=== PATIENT | female | born 1990 | race Caucasian/White ===

== ENCOUNTER 2024-12-29 00:10 | Inpatient (IN) ==
[2024-12-29] MEDS ORDERED: LIDOCAINE 1% LOCAL 20 ML VIAL INFIL PRN (18:22)
[2024-12-29] MEDS ORDERED: CALCIUM CARBONATE 500 MG CHEWABLE TAB PO PRN (18:22)
[2024-12-29] MEDS ORDERED: OXYTOCIN 30 UNITS/NSS 30 UNITS/500 ML BAG IV PRN ×2 (18:22)
[2024-12-29 19:54] LABS: Hematocrit (blood only) 34.0 % (37.0-47.0); Hemoglobin 11.9 g/dl (12.0-16.0); Mean Corpuscular Hemoglobin 30.9 pg (25.0-34.0); Mean Corpuscular Volume 88.3 fL (80.0-100.0); Platelet Count 144 K/uL (130-400); RDW Standard Deviation 45.8 fL (36.4-46.3); Red Blood Count 3.85 M/uL (4.20-5.40); White Blood Count 10.62 K/ul (4.8-10.8)
--- NOTE | 2024-12-29 21:24 | History & Physical Report ---
Date of Service December 29, 2024 Assessment & Plan (1) 41 weeks gestation of : (2) Encounter for induction of labor: (3) Uterus didelphus in : Plan admit, iv, labs. fhts categ 1. i do feel that i was palpating dominant cx as can feel developed DEBBI. cephalic by u/s at [facility] yesterday. will try to ripen cx with cytotec and at later time consider cobb and then pit as appropriate. have discussed pcn for now gbs unknown since >5wks from negative result. Admission and Anticipated Discharge Date Admission Date: December 29, 2024 History of Present Illness Chief Complaint: planned induction Primary Care Provider: NO PCP 34yo at 41+wks egmalcolm presents to LD for planned postdates induction. She had some cramping since last seen. No vb. No rom. +FM. Uterine didelphys, in right side. Growth u/s normal. PNL rh pos, ri, gbs unknown given >5wks from negative result. Allergies Allergy/AdvReac Type Severity Reaction Status Date / Time No Known Allergies Allergy Verified 12/18/24 13:53 Home Medications Medication Instructions Recorded Confirmed Type PNV no.[id number] PO 06/09/24 12/18/24 History [ Gummies] ferrous sulfate 325 mg (65 mg 325 mg PO Q OTHER DAY 10/24/24 12/29/24 History iron) tablet (FeroSul) Patient History Medical History (Updated 12/29/24 @ 21:[address] MD, FACOG) Asthma Childhood History of chicken pox Surgical History (Updated 06/16/24 @ 13:04 by Laquita Sherman MD) History of gynecologic surgery vaginal septum removal S/P tooth extraction Family History (Updated 06/09/24 @ 09:57 by Jennifer Sal) Denies family history of Ovarian cancer Breast cancer Colorectal cancer Social History (Updated 12/29/24 @ 18:14 by Sandra Mejia, PINO) Smoking Status: Never smoker Do You Dip or Chew Tobacco: No; Hx Alcohol Use: No Hx Substance Use: No Preferred Language: Khmer Communication Ability: Effective Hearing Ability: Normal Embroidery Cutter Required: No Beliefs That Will Affect Care: None marital status: marital status details: Alexis Miranda ([phone] Current Living Situation: Spouse and Family Current Living Situation Comment: lives with spouse, adopted daughter, many animals, cat-dad changing litter current occupational status: employed current occupation: [employer] Other Information That Helps Us Care for You: No Feels Safe at Home: Yes Safety Concerns: Feels Safe At This Time Diet: regular Assistive Devices: None Review of Systems as per Subjective / HPI Physical Exam Constitutional: WD/WN, vitals as above Respiratory: normal respiratory effort, lungs clear to auscultation Cardiovascular: Rate/Rhythm: regular rate and regular rhythm Gastrointestinal (Abdomen): soft gravid nt efw 7-8# Musculoskeletal: no edema nontender calves Neurologic: grossly normal Psychiatric: A+Ox3, euthymic affect Genitourinary: Manual OB Exam: + cervical dilation fingertip (developed DEBBI), + cervical effacement 80% and + station -2 OB Exam Monitor Tracing: + external FHT monitor used, + external uterine monitor used (irreg), + category I and + normal FHT variability PROCEDURE: sse cx visualized, appears dominant, grasped on ant lip with ring forcep, cobb through os and balloon inflated but promptly came out of os. procedure aborted. 25mcg cytotec placed after informed cons ent, off label use, high use in obstetrics reviewed, [facility] of action and side effects. Results & Data Vital Signs (Past 12 Hours) Vital Signs Temp Pulse Resp BP O2 Del Method 12/29/24 19:12 98.1 F 88 18 135/90 12/29/24 19:07 98.1 F 18 12/29/24 19:07 Room Air 12/29/24 18:18 98.2 F 81 18 139/91 12/29/24 18:11 81 139/91 Coding Level of Care Code None Diagnoses 41 weeks gestation of O48.0; Z3A.41 Encounter for induction of labor Z34.90 Uterus didelphus in O34.599; Q51.28 CPT Codes Misx Procedure Codes - 85991-31 Placement of cervical dilator: 45164-63 Placement of cervical dilator w/53 modifier ([id number])
--- NOTE | 2024-12-30 08:08 | Labor Progress Brief Note ---
Date of Service December 30, 2024 Subjective pt feels cramping. showing ctx on monitor they vary in intensity to her. had one dose cytotec overnight. afer failed cobb attempt Assessment & Plan (1) 41 weeks gestation of : (2) Encounter for induction of labor: (3) Uterus didelphus in : Plan Discussed with pt that cx still unfavorable. now that i can palpated 1cm, did rec trying to place cobb and was successful. fhts categ 1. Admission and Anticipated Discharge Date Admission Date: December 29, 2024 Physical Exam Constitutional: WD/WN, vitals as above Genitourinary: Manual OB Exam: + cervical dilation (right cervix, off to side moreso, no straight on. ) 1 cm OB Exam Monitor Tracing: + external FHT monitor used, + external uterine monitor used (q2), + category I and + normal FHT variability PROCEDURE: sse cx visualized, not cx straight ahead its to its side. grasped on ant lip with ring forcep, cobb through os and balloon inflated with 40cc sterile water. Spec removed, cobb taped to leg. pt murtaza well. Results & Data Vital Signs (Past 12 Hours) Vital Signs Temp Pulse Resp BP 12/30/24 07:03 98.4 F 92 H 18 144/80 H 12/30/24 02:00 98.4 F 82 18 127/76 12/29/24 22:20 98.2 F 90 18 139/81 Coding Level of Care Code None Diagnoses 41 weeks gestation of O48.0; Z3A.41 Encounter for induction of labor Z34.90 Uterus didelphus in O34.599; Q51.28 CPT Codes Misx Procedure Codes - 74599 Placement of cervical dilator: 64931 Placement of cervical dilator ([id number]) [employer] Miscellaneous Codes Misx Procedure Codes 64406 Placement of cervical dilator
[2024-12-30] MEDS ORDERED: Nursing to Pharmacy Communication SCH (10:45)
[2024-12-30] MEDS: OXYTOCIN 30 UNITS/NSS 30 UNITS/500 ML BAG IV PRN (11:30)
[2024-12-30] MEDS: LACTATED RINGER'S 1,000 ML IV PRN (11:30)
[2024-12-30] MEDS ORDERED: diphenhydrAMINE 50 MG/ML VIAL IV PRN (22:25)
[2024-12-30] MEDS ORDERED: fentANYL 2 MCG/ML BUPIVacaine 0.125%-NSS 100ML BAG EPI PRN (22:25)
[2024-12-30] MEDS ORDERED: SODIUM CHLORIDE 0.9% PF INJ 10 ML VIAL EPI PRN (22:25)
[2024-12-30] MEDS ORDERED: NALOXONE HCL 0.4 MG/1 ML VIAL/CARP IV PRN (22:25)
[2024-12-30] MEDS ORDERED: LIDOCAINE 2% MPF LOCAL 5 ML VIAL EPI PRN (22:25)
[2024-12-30] MEDS ORDERED: NALBUPHINE HCL INJ 10 MG/ML AMP IV PRN (22:25)
[2024-12-30] MEDS ORDERED: BUPIVACAINE 0.25% PF 30 ML VIAL EPI PRN (22:25)
[2024-12-30] MEDS ORDERED: NALOXONE HCL 1 MG in SODIUM CHLORIDE 0.9% 1,000 ML IV PRN (22:25)
[2024-12-30] MEDS ORDERED: ROPIVACAINE 0.5% PF 5 MG/ML 20 ML VIAL EPI PRN (22:25)
--- NOTE | 2024-12-30 22:25 | Anesthesiology Consultation ---
Date of Service December 30, 2024 Assessment & Plan Chart Review Chart Review: Acceptable Risk for Labor Epidural Consults Requested none History Height/Weight Height: 5 ft 2 in Weight: 74.843 kg Allergies Allergy/AdvReac Type Severity Reaction Status Date / Time No Known Allergies Allergy Verified 12/18/24 13:53 Medications Home Medications Medication Instructions Recorded Confirmed Last Taken PNV no.[id number] PO 06/09/24 12/18/24 12/29/24 [ Gummies] ferrous sulfate 325 mg (65 mg 325 mg PO Q OTHER DAY 10/24/24 12/29/24 12/28/24 iron) tablet (FeroSul) Active Medications Generic Name Dose Route Start Last Admin Trade Name Freq PRN Reason Stop Dose Admin Lactated Ringer's 1,000 mls @ 125 mls/hr 12/29/24 18:22 12/30/24 22:17 Lr IV 12/31/24 18:21 999 mls/hr .Q8H PRN Administration L&D Protocol Protocol Oxytocin 30 units in 500 mls @ 8 mls/hr 12/30/24 10:30 12/30/24 20:00 Pitocin 30 Units/Nss IV 01/01/25 10:29 0.48 units/hr .Q24H PRN 8 mls/hr Labor Induction/Augmentation Titration Protocol 0.48 UNITS/HR Past Medical History Medical History (Updated 12/29/24 @ 21:[address] MD, FACOG) Asthma Childhood History of chicken pox Past Family History Family History (Updated 06/09/24 @ 09:57 by Jennifer Sal) Denies family history of Ovarian cancer Breast cancer Colorectal cancer Past Surgical History Surgical History (Updated 06/16/24 @ 13:04 by Laquita Sherman MD) History of gynecologic surgery vaginal septum removal S/P tooth extraction Social History Smoking Status: Never smoker Do You Dip or Chew Tobacco: No Hx Alcohol Use: No Hx Substance Use: No Physical Exam Vital Signs Last Vital Signs Temp 36.5 C 12/30/24 21:05 Pulse 64 12/30/24 22:22 Resp 22 12/30/24 22:00 BP 141/97 H 12/30/24 21:56 Pulse Ox 96 12/30/24 22:22 O2 Del Method Room Air 12/29/24 19:07 Testing Laboratory Results 12/29/24 18:59
[2024-12-30] MEDS: fentANYL 2 MCG/ML BUPIVacaine 0.125%-NSS 100ML BAG ONE (23:33)
[2024-12-30] MEDS: BUPIVACAINE 0.25% PF 30 ML VIAL ONE (23:37)
[2024-12-30] MEDS: LIDOCAINE 2%/EPINEPHRINE 1:200,000 20 ML PF ONE (23:37)
--- NOTE | 2024-12-31 06:49 | Labor Progress Brief Note ---
Date of Service December 31, 2024 Induction began on Wednesday initially with Cytotec and then cervical Lambert. On arrival yesterday morning began Pitocin cervical Lambert eventually was removed and found cervix to be 2 cm this was late yesterday morning artificial rupture of membranes was performed for clear fluid Pitocin was continued eventually patient requested epidural unfortunately the next 24 hours we have had no cervical change despite adequate contractions now but her presence of late decelerations Pitocin has been stopped I discussed with the patient and recommend a section for failure to progress and also nonreassuring heart rate tracing discussed in depth including higher risks of infection section. The patient was counseled to the nature of the procedure including alternatives such as labor. Risks were discussed including bleeding infection injury to bowel bladder ureter vessels and even baby. Deep Vein thrombosis, pulmonary embolus discussed. Breakdown of incision reviewed. Deep vein thrombosis pulmonary embolus hernia and failure of the incision to heal were discussed Patient verbalized understanding of this and was given ample time to ask questions Assessment & Plan Admission and Anticipated Discharge Date Admission Date: December 29, 2024 Results & Data Vital Signs (Past 12 Hours) Vital Signs Temp Pulse Resp BP Pulse Ox 12/31/24 06:42 77 99 12/31/24 06:37 85 100 12/31/24 06:33 84 129/77 12/31/24 06:32 84 99 12/31/24 06:30 20 12/31/24 06:30 20 12/31/24 06:27 78 99 12/31/24 06:22 91 H 98 12/31/24 06:18 84 128/73 12/31/24 06:17 85 99 12/31/24 06:12 88 98 12/31/24 06:07 73 96 12/31/24 06:03 71 119/67 12/31/24 06:02 74 97 12/31/24 06:00 20 12/31/24 06:00 20 12/31/24 05:57 75 96 12/31/24 05:52 71 96 12/31/24 05:48 71 113/56 L 12/31/24 05:47 73 97 12/31/24 05:42 86 96 12/31/24 05:37 75 95 12/31/24 05:33 82 124/74 12/31/24 05:32 76 96 12/31/24 05:30 18 12/31/24 05:30 18 12/31/24 05:27 74 97 12/31/24 05:22 76 97 12/31/24 05:18 72 130/78 12/31/24 05:17 74 98 12/31/24 05:12 76 97 12/31/24 05:07 82 99 12/31/24 05:03 81 126/75 12/31/24 05:02 89 99 12/31/24 05:00 18 12/31/24 05:00 98.2 F 18 12/31/24 04:57 77 98 12/31/24 04:52 93 H 98 12/31/24 04:48 93 H 118/72 12/31/24 04:47 85 97 12/31/24 04:42 95 H 98 12/31/24 04:37 100 H 98 12/31/24 04:33 71 123/75 12/31/24 04:32 69 96 12/31/24 04:27 71 96 12/31/24 04:22 88 98 12/31/24 04:18 77 123/77 12/31/24 04:17 81 96 12/31/24 04:12 66 95 12/31/24 04:07 68 96 12/31/24 04:03 75 118/74 12/31/24 04:02 72 96 12/31/24 04:00 18 12/31/24 04:00 18 12/31/24 03:57 69 94 12/31/24 03:52 69 95 12/31/24 03:49 70 119/71 12/31/24 03:47 69 96 12/31/24 03:42 71 96 12/31/24 03:37 70 95 12/31/24 03:33 67 115/69 12/31/24 03:32 70 96 12/31/24 03:30 18 12/31/24 03:30 18 12/31/24 03:27 75 96 12/31/24 03:22 71 95 12/31/24 03:18 71 126/71 12/31/24 03:17 74 97 12/31/24 03:12 71 95 12/31/24 03:07 71 95 12/31/24 03:04 77 123/63 12/31/24 03:02 81 96 12/31/24 03:00 18 12/31/24 03:00 98.2 F 18 12/31/24 02:57 95 H 99 12/31/24 02:52 74 98 12/31/24 02:48 70 135/77 12/31/24 02:47 80 100 12/31/24 02:42 75 96 12/31/24 02:37 67 97 12/31/24 02:33 74 131/79 12/31/24 02:32 81 97 12/31/24 02:30 18 12/31/24 02:30 18 12/31/24 02:27 69 96 12/31/24 02:22 67 96 12/31/24 02:18 75 103/59 L 12/31/24 02:17 73 95 12/31/24 02:12 73 95 12/31/24 02:07 74 95 12/31/24 02:03 75 106/56 L 12/31/24 02:02 74 95 12/31/24 02:00 18 12/31/24 02:00 18 12/31/24 01:57 74 95 12/31/24 01:52 72 96 12/31/24 01:49 75 112/60 12/31/24 01:47 91 H 97 12/31/24 01:42 81 96 12/31/24 01:37 76 94 12/31/24 01:33 73 120/71 12/31/24 01:32 75 96 12/31/24 01:30 16 12/31/24 01:30 16 12/31/24 01:27 71 94 12/31/24 01:22 76 96 12/31/24 01:18 72 118/68 12/31/24 01:17 70 95 12/31/24 01:12 82 97 12/31/24 01:07 91 H 97 12/31/24 01:03 82 117/75 12/31/24 01:02 81 97 12/31/24 01:00 18 12/31/24 01:00 97.7 F 18 12/31/24 00:57 95 H 97 12/31/24 00:52 95 H 97 12/31/24 00:48 76 108/65 12/31/24 00:47 82 97 12/31/24 00:42 75 96 12/31/24 00:37 74 98 12/31/24 00:33 71 111/63 12/31/24 00:32 80 97 12/31/24 00:30 18 12/31/24 00:30 18 12/31/24 00:27 80 98 12/31/24 00:22 109 H 98 12/31/24 00:18 85 114/70 12/31/24 00:17 89 98 12/31/24 00:12 78 98 12/31/24 00:07 68 98 12/31/24 00:03 77 116/61 12/31/24 00:02 83 98 12/31/24 00:00 18 12/31/24 00:00 18 12/30/24 23:59 81 117/65 12/30/24 23:57 88 99 12/30/24 23:55 85 150/68 H 12/30/24 23:52 88 99 12/30/24 23:48 82 121/65 12/30/24 23:47 78 98 12/30/24 23:42 94 H 116/60 98 12/30/24 23:37 94 H 98 12/30/24 23:36 81 139/58 L 12/30/24 23:33 78 117/59 L 12/30/24 23:32 90 98 12/30/24 23:31 18 12/30/24 23:31 98.1 F 18 12/30/24 23:29 108 H 134/93 12/30/24 23:27 99 H 98 12/30/24 23:22 91 H 98 12/30/24 23:17 94 H 98 12/30/24 23:12 120 H 98 12/30/24 23:11 90 119/57 L 12/30/24 23:08 103 H 106/63 12/30/24 23:07 85 98 12/30/24 23:06 87 189/83 H 12/30/24 23:05 96 H 186/84 H 12/30/24 23:02 101 H 98 12/30/24 23:01 83 87 L 12/30/24 22:57 82 139/80 97 12/30/24 22:55 80 147/87 H 12/30/24 22:53 78 155/79 H 12/30/24 22:52 92 H 97 12/30/24 22:47 86 98 12/30/24 22:42 90 97 12/30/24 22:37 97 H 97 12/30/24 22:32 85 99 12/30/24 22:30 18 12/30/24 22:30 18 12/30/24 22:27 91 H 98 12/30/24 22:22 64 96 12/30/24 22:17 65 96 12/30/24 22:12 91 H 99 12/30/24 22:07 102 H 98 12/30/24 22:02 100 H 99 12/30/24 22:00 22 12/30/24 22:00 22 12/30/24 21:57 84 98 12/30/24 21:56 94 H 141/97 H 12/30/24 21:30 20 12/30/24 21:30 20 12/30/24 21:07 91 H 141/89 H 12/30/24 21:05 20 12/30/24 21:05 97.7 F 20 12/30/24 20:00 18 12/30/24 20:00 18 12/30/24 19:57 73 135/75 12/30/24 19:08 96 H 126/87 12/30/24 19:00 18 12/30/24 19:00 98.1 F 18 Coding Level of Care Code None
[2024-12-31] MEDS: LACTATED RINGER'S 1,000 ML IV SCH ×2 (07:00→11:54)
[2024-12-31] MEDS: ACETAMINOPHEN 500 MG TAB PO SCH (07:05)
[2024-12-31] MEDS: AZITHROMYCIN 500 MG/255 ML BAG IV SCH (07:10)
--- NOTE | 2024-12-31 07:29 | Communication Note ---
Date of Service: December 31, 2024 Pt in labor w/ failure to progress. will use epidural for anesthetic and proceed for c section.
[2024-12-31] MEDS ORDERED: LIDOCAINE 2%/EPINEPHRINE 1:200,000 20 ML PF ONE (07:33)
[2024-12-31] MEDS: CITRIC ACID/SODIUM CITRATE 15 ML UDC PO SCH (07:37)
[2024-12-31] MEDS ORDERED: ONDANSETRON INJ 2 MG/ML 2 ML VIAL ONE (07:41)
[2024-12-31] MEDS ORDERED: OXYTOCIN 10 UNITS/ML VIAL ONE ×3 (07:42→07:54)
[2024-12-31] MEDS ORDERED: CARBOPROST TROMETHAMINE 250 MCG/ML AMPUL ONE (08:16)
[2024-12-31] MEDS ORDERED: MoRPHine SULFATE PF 1 MG/ML 10 ML AMP/VIAL ONE (08:20)
[2024-12-31 08:37] LABS: Base Excess Cord Venous Blood -4.4 mEq/L (-7.7-1.9); Cord Venous Blood PO2 24 mmHg (14.1-43.3); O2 Saturation Cord Venous Bld < 60.0 % (<68)
[2024-12-31] MEDS ORDERED: NALBUPHINE HCL INJ 10 MG/ML AMP IV PRN (08:38)
[2024-12-31] MEDS ORDERED: NALOXONE HCL 0.08 MG in SYRINGE 1.8 ML IV PRN (08:38)
[2024-12-31] MEDS ORDERED: LACTATED RINGER'S 500 ML IV PRN (08:38)
[2024-12-31] MEDS ORDERED: NALOXONE HCL 0.4 MG/1 ML VIAL/CARP IV PRN (08:38)
[2024-12-31] MEDS ORDERED: PROMETHAZINE 6.25 MG/50.25 ML BAG IV PRN (08:38)
[2024-12-31] MEDS ORDERED: diphenhydrAMINE 50 MG/ML VIAL IV PRN (08:38)
[2024-12-31] MEDS ORDERED: NALOXONE HCL 1 MG in SODIUM CHLORIDE 0.9% 1,000 ML IV PRN (08:38)
[2024-12-31] MEDS ORDERED: ONDANSETRON INJ 2 MG/ML 2 ML VIAL IV PRN (08:38)
[2024-12-31 08:40] LABS: Base Excess Cord Arterial Bld -3.3 mEq/L (-9-1.8); CO2 Cord Arterial Blood 46 mmHg (39.1-73.5); HCO3 Cord Arterial Blood 23 mmol/L (19.7-28.5); Oxygen Sat Cord Arterial Blood < 60.0 % (<60); PO2 Cord Arterial Blood < 20 mmHg (4.1-31.7); pH Cord Arterial Blood 7.31 (7.1-7.38)
[2024-12-31] MEDS ORDERED: NO NARCOTICS OR SEDATIVES SCH (08:45)
[2024-12-31] MEDS ORDERED: DC INTRASPINAL MORPHINE SCH (08:45)
[2024-12-31] MEDS ORDERED: CALCIUM CARBONATE 500 MG CHEWABLE TAB PO PRN (08:46)
[2024-12-31] MEDS ORDERED: BENZOCAINE 20% SPRY 85 APPLN/85 GM CAN EXT PRN (08:46)
[2024-12-31] MEDS ORDERED: MAGNESIUM HYDROXIDE SUSP 30 ML UDC PO PRN (08:46)
[2024-12-31] MEDS ORDERED: HYDROCORTISONE ACETATE 25 MG SUPP PR PRN (08:46)
[2024-12-31] MEDS ORDERED: SENNA 8.6 MG TAB PO PRN (08:46)
--- NOTE | 2024-12-31 08:51 | Operative Report ---
Post Operative Report Pre & Post Diagnosis Operation Date: 12/31/24 07:45 Pre-Op Diagnosis: Failure to Progress; Nonreassuring FHR pattern Post-Op Diagnosis: Same; Delivery of a live female child at I identified the patient and participated in the time-out.: Yes Procedure Operation Date: 12/31/24 07:45 Low segment transverse section Surgeon Pedro Vasquez MD, FACOG [place] [employer] Member Pedro Cheek RN Quantitative Blood Loss (QBL) 469 Findings Consistent with Post-Op Diagnosis Specimens Cord blood Cord gases Description of Procedure Regional anesthetic had been given by anesthesia patient was prepped and draped with a leftward tilt preoperative antibiotics had been given in appropriate timing by anesthesiology. Once the prep was allowed to fully dry timeout was performed. Pickups with teeth were used to test the incision area was found to be adequate for incision as the patient did not feel sharp pain. Scalpel was used to make a Pfannenstiel incision on the lower abdomen. We then cut through the subcutaneous fat down to the level of the anterior rectus sheath fascia this was cut in the midline and then extended laterally with the curved Jarquin scissors. At this stage we then placed 2 Sonam clamps on the anterior aspect of the fascia. Using the curved Jarquin's we are able to dissect the fascia superiorly away from the rectus muscles. Care was taken to maintain hemostasis. Sonam clamps were then placed to the inferior aspect of the anterior sheath of the fascia. Fascia was then dissected away from the rectus muscles inferiorly towards the pubic bone. A Sonam was then placed in the midline both inferiorly and superiorly. This was to allow exposure by retraction rectus muscles were in the midline with were then able to cut through the peritoneum and then enter the peritoneal cavity. Opening was enlarged to allow exposure of the peritoneal cavity both superiorly and inferiorly. Once adequate space was obtained a bladder retractor was placed to expose the lower segment Metzenbaums were used to dissect the bladder flap inferiorly away from the uterus. This was done sharply bladder retractor was then repositioned to expose the lower segment of the uterus Fresh scalpel was used to make a low transverse incision on the uterus. Uterus was then entered bluntly with the operators finger, membranes ruptured and the opening was enlarged using the operators fingers bluntly pulling superiorly and inferiorly to allow exposure. Baby was delivered by first flexion of the head elevation of the head out of the pelvis and then pressure by the dental ceramist assistant on the maternal abdomen. Baby's head was then delivered mouth and then nares were suctioned and then using gentle traction the baby was fully delivered. Live vigorous infant. Fluid was clear cord clamped and cut cord gases obtained cord blood obtained baby handed to pediatrics. Placenta removed was removed with traction uterus p artially inverted which was corrected easily by pushing back in the center of the uterus the placenta was fully removed uterus was examined there was a right ovary and tube on the uterus there was a second uterus on the patient's left side with adnexa as well Uterus was then exteriorized. IV Pitocin had been started by anesthesia tone improved there were no extensions the uterus was then closed using 0 Monocryl in a 2 layer closure the first layer closed in a running locked fashion from left to right and then a second closure from left to right in a running nonlocked fashion. At this stage hemostasis was excellent. Uterus was placed back in the peritoneal cavity with suction irrigation out and inspection of the uterus at this stage revealed excellent hemostasis Retractors were removed urine color was clear at this stage of the case we inspected the rectus muscles they were hemostatic fascia was closed with 0 Vicryl subcutaneous fat was irrigated and closed with 3-0 Vicryl skin closed with 4-0 subcuticular Monocryl Yaneli dressing applied as higher risk for infection with prolonged rupture membranes and induction Baby was in occiput posterior position I attest to the content of the Intraoperative Record and any orders documented therein. Any exceptions are noted below. OB Procedure Charges 22054
[2024-12-31] MEDS: BUPIVACAINE 0.25% PF 30 ML VIAL EPI STA (09:13)
[2024-12-31] MEDS: SODIUM CHLORIDE 0.9% PF INJ 10 ML VIAL ONE (09:13)
[2024-12-31] MEDS: LIDOCAINE 2%/EPINEPHRINE 1:200,000 20 ML PF EPI STA (09:14)
[2024-12-31] MEDS: MoRPHine SULFATE PF 1 MG/ML 10 ML AMP/VIAL EPI ONE (09:15)
[2024-12-31] MEDS: SODIUM CHLORIDE 0.9% 1,000 ML IV SCH (09:15)
[2024-12-31] MEDS: SODIUM CHLORIDE 0.9% PF INJ 10 ML VIAL EPI STA (09:16)
[2024-12-31] MEDS: KETOROLAC 30 MG/ML VIAL IV SCH (09:23)
[2024-12-31] MEDS: OXYTOCIN 20 UNITS/LR 1,002 ML IV SCH (10:15)
--- NOTE | 2024-12-31 11:15 | Anesthesia Procedure Note ---
Date of Service December 31, 2024 Anesthesia Post Epidural Note Vital Signs Vital Signs: Temp Pulse Resp BP Pulse Ox O2 Del Method 36.7 C 75 16 120/80 94 Room Air 12/31/24 07:17 12/31/24 11:10 12/31/24 07:17 12/31/24 11:01 12/31/24 11:10 12/29/24 19:07 Pain Intensity Bilateral Perineal: Pain Intensity: 8 Notes Mental Status: alert / awake / arousable Nausea / Vomiting: adequately controlled Pain: adequately controlled Airway Patency, RR, SpO2: stable & adequate BP & HR: stable & adequate Hydration State: stable & adequate Neuraxial Anesthesia: was administered and sensory block is resolving Anesthetic Complications: no major complications apparent Epidural: Removed without complications and With tip intact
--- NOTE | 2024-12-31 11:17 | Anesthesiology Progress Note ---
Date of Service December 31, 2024 Anesthesia Post Procedure Vital Signs Vital Signs: Temp Pulse Resp BP Pulse Ox 12/31/24 11:14 74 96 12/31/24 11:10 75 94 12/31/24 11:09 76 95 12/31/24 11:05 77 94 12/31/24 11:04 81 95 12/31/24 11:01 71 120/80 12/31/24 10:59 77 94 12/31/24 10:54 72 96 12/31/24 10:50 76 94 12/31/24 10:49 81 96 12/31/24 10:44 83 96 12/31/24 10:41 75 94 12/31/24 10:39 76 96 12/31/24 10:36 89 94 12/31/24 10:34 74 96 12/31/24 10:30 79 131/74 12/31/24 10:29 81 96 12/31/24 10:24 89 96 12/31/24 10:21 88 125/69 12/31/24 10:19 90 96 12/31/24 10:14 91 H 96 12/31/24 10:11 81 129/74 12/31/24 10:09 86 96 12/31/24 10:04 94 H 96 12/31/24 10:01 80 127/73 12/31/24 09:59 84 97 12/31/24 09:54 86 97 12/31/24 09:51 89 127/69 12/31/24 09:49 83 97 12/31/24 09:44 84 97 12/31/24 09:41 85 143/77 H 12/31/24 09:39 80 96 12/31/24 09:34 89 97 12/31/24 09:33 88 140/73 12/31/24 09:29 86 98 12/31/24 09:24 88 97 12/31/24 09:21 100 H 106/56 L 12/31/24 09:19 102 H 97 12/31/24 09:14 99 H 97 12/31/24 09:11 97 H 102/50 L 12/31/24 09:09 96 H 97 12/31/24 09:03 82 97 12/31/24 09:01 88 111/61 12/31/24 08:58 91 H 100 12/31/24 08:53 84 99 12/31/24 08:49 89 102/62 12/31/24 08:48 97 H 99 12/31/24 07:48 107 H 146/85 H 12/31/24 07:47 114 H 100 12/31/24 07:44 110 H 163/83 H 12/31/24 07:42 114 H 100 12/31/24 07:37 92 H 99 12/31/24 07:34 88 130/81 12/31/24 07:32 93 H 99 12/31/24 07:27 94 H 99 12/31/24 07:22 94 H 100 12/31/24 07:18 80 132/79 12/31/24 07:17 36.7 C 80 16 99 12/31/24 07:12 92 H 99 12/31/24 07:07 88 99 12/31/24 07:02 84 100 12/31/24 06:57 101 H 99 12/31/24 06:52 85 100 12/31/24 06:48 81 132/83 12/31/24 06:47 83 99 12/31/24 06:42 77 99 12/31/24 06:37 85 100 12/31/24 06:33 84 129/77 12/31/24 06:32 84 99 12/31/24 06:30 20 12/31/24 06:30 20 12/31/24 06:27 78 99 12/31/24 06:22 91 H 98 12/31/24 06:18 84 128/73 12/31/24 06:17 85 99 12/31/24 06:12 88 98 12/31/24 06:07 73 96 12/31/24 06:03 71 119/67 12/31/24 06:02 74 97 12/31/24 06:00 20 12/31/24 06:00 20 12/31/24 05:57 75 96 12/31/24 05:52 71 96 12/31/24 05:48 71 113/56 L 12/31/24 05:47 73 97 12/31/24 05:42 86 96 12/31/24 05:37 75 95 12/31/24 05:33 82 124/74 12/31/24 05:32 76 96 12/31/24 05:30 18 12/31/24 05:30 18 12/31/24 05:27 74 97 12/31/24 05:22 76 97 12/31/24 05:18 72 130/78 12/31/24 05:17 74 98 12/31/24 05:12 76 97 12/31/24 05:07 82 99 12/31/24 05:03 81 126/75 12/31/24 05:02 89 99 12/31/24 05:00 18 12/31/24 05:00 36.8 C 18 12/31/24 04:57 77 98 12/31/24 04:52 93 H 98 12/31/24 04:48 93 H 118/72 12/31/24 04:47 85 97 12/31/24 04:42 95 H 98 12/31/24 04:37 100 H 98 12/31/24 04:33 71 123/75 12/31/24 04:32 69 96 12/31/24 04:27 71 96 12/31/24 04:22 88 98 12/31/24 04:18 77 123/77 12/31/24 04:17 81 96 12/31/24 04:12 66 95 12/31/24 04:07 68 96 12/31/24 04:03 75 118/74 12/31/24 04:02 72 96 12/31/24 04:00 18 12/31/24 04:00 18 12/31/24 03:57 69 94 12/31/24 03:52 69 95 12/31/24 03:49 70 119/71 12/31/24 03:47 69 96 12/31/24 03:42 71 96 12/31/24 03:37 70 95 12/31/24 03:33 67 115/69 12/31/24 03:32 70 96 12/31/24 03:30 18 12/31/24 03:30 18 12/31/24 03:27 75 96 12/31/24 03:22 71 95 12/31/24 03:18 71 126/71 12/31/24 03:17 74 97 12/31/24 03:12 71 95 12/31/24 03:07 71 95 12/31/24 03:04 77 123/63 12/31/24 03:02 81 96 12/31/24 03:00 18 12/31/24 03:00 36.8 C 18 12/31/24 02:57 95 H 99 12/31/24 02:52 74 98 12/31/24 02:48 70 135/77 12/31/24 02:47 80 100 12/31/24 02:42 75 96 12/31/24 02:37 67 97 12/31/24 02:33 74 131/79 12/31/24 02:32 81 97 12/31/24 02:30 18 12/31/24 02:30 18 12/31/24 02:27 69 96 12/31/24 02:22 67 96 12/31/24 02:18 75 103/59 L 12/31/24 02:17 73 95 12/31/24 02:12 73 95 12/31/24 02:07 74 95 12/31/24 02:03 75 106/56 L 12/31/24 02:02 74 95 12/31/24 02:00 18 12/31/24 02:00 18 12/31/24 01:57 74 95 12/31/24 01:52 72 96 12/31/24 01:49 75 112/60 12/31/24 01:47 91 H 97 12/31/24 01:42 81 96 12/31/24 01:37 76 94 12/31/24 01:33 73 120/71 12/31/24 01:32 75 96 12/31/24 01:30 16 12/31/24 01:30 16 12/31/24 01:27 71 94 12/31/24 01:22 76 96 12/31/24 01:18 72 118/68 12/31/24 01:17 70 95 12/31/24 01:12 82 97 12/31/24 01:07 91 H 97 12/31/24 01:03 82 117/75 12/31/24 01:02 81 97 12/31/24 01:00 18 12/31/24 01:00 36.5 C 18 12/31/24 00:57 95 H 97 12/31/24 00:52 95 H 97 12/31/24 00:48 76 108/65 12/31/24 00:47 82 97 12/31/24 00:42 75 96 12/31/24 00:37 74 98 12/31/24 00:33 71 111/63 12/31/24 00:32 80 97 12/31/24 00:30 18 12/31/24 00:30 18 12/31/24 00:27 80 98 12/31/24 00:22 109 H 98 12/31/24 00:18 85 114/70 12/31/24 00:17 89 98 12/31/24 00:12 78 98 12/31/24 00:07 68 98 12/31/24 00:03 77 116/61 12/31/24 00:02 83 98 12/31/24 00:00 18 12/31/24 00:00 18 12/30/24 23:59 81 117/65 12/30/24 23:57 88 99 12/30/24 23:55 85 150/68 H 12/30/24 23:52 88 99 12/30/24 23:48 82 121/65 12/30/24 23:47 78 98 12/30/24 23:42 94 H 116/60 98 12/30/24 23:37 94 H 98 12/30/24 23:36 81 139/58 L 12/30/24 23:33 78 117/59 L 12/30/24 23:32 90 98 12/30/24 23:31 18 12/30/24 23:31 36.7 C 18 12/30/24 23:29 108 H 134/93 12/30/24 23:27 99 H 98 12/30/24 23:22 91 H 98 12/30/24 23:17 94 H 98 12/30/24 23:12 120 H 98 12/30/24 23:11 90 119/57 L 12/30/24 23:08 103 H 106/63 12/30/24 23:07 85 98 12/30/24 23:06 87 189/83 H 12/30/24 23:05 96 H 186/84 H 12/30/24 23:02 101 H 98 12/30/24 23:01 83 87 L 12/30/24 22:57 82 139/80 97 12/30/24 22:55 80 147/87 H 12/30/24 22:53 78 155/79 H 12/30/24 22:52 92 H 97 12/30/24 22:47 86 98 12/30/24 22:42 90 97 12/30/24 22:37 97 H 97 12/30/24 22:32 85 99 12/30/24 22:30 18 12/30/24 22:30 18 12/30/24 22:27 91 H 98 12/30/24 22:22 64 96 12/30/24 22:17 65 96 12/30/24 22:12 91 H 99 12/30/24 22:07 102 H 98 12/30/24 22:02 100 H 99 12/30/24 22:00 22 12/30/24 22:00 22 12/30/24 21:57 84 98 12/30/24 21:56 94 H 141/97 H 12/30/24 21:30 20 12/30/24 21:30 20 12/30/24 21:07 91 H 141/89 H 12/30/24 21:05 20 12/30/24 21:05 36.5 C 20 12/30/24 20:00 18 12/30/24 20:00 18 12/30/24 19:57 73 135/75 12/30/24 19:08 96 H 126/87 12/30/24 19:00 18 12/30/24 19:00 36.7 C 18 12/30/24 18:01 36.6 C 81 18 139/83 12/30/24 17:01 82 130/90 12/30/24 17:00 16 12/30/24 17:00 36.7 C 16 12/30/24 15:35 111 H 145/81 H 12/30/24 14:30 93 H 144/79 H 12/30/24 13:48 18 12/30/24 13:48 36.8 C 18 12/30/24 13:32 86 143/80 H 12/30/24 12:30 90 136/83 12/30/24 11:29 96 H 155/94 H Pain Intensity Bilateral Perineal: Pain Intensity: 8 Transfer of Care Handoff Completed per policy Notes Mental Status: alert / awake / arousable Patient Amnestic to Procedure: Yes Nausea / Vomiting: adequately controlled Pain: adequately controlled Airway Patency, RR, SpO2: stable & adequate BP & HR: stable & adequate Hydration State: stable & adequate Anesthetic Complications: no major complications apparent
[2024-12-31] MEDS: DIPHTHER/TETAN/PERTUS Vaccine (Tdap, Adol/Adult) 0.5mL IM ONE (11:53)
[2024-12-31] MEDS: ACETAMINOPHEN 325 MG TAB PO SCH (14:50)
[2024-12-31] MEDS: SIMETHICONE 80 MG CHEW PO SCH (14:50)
[2024-12-31] MEDS: DOCUSATE SODIUM 100 MG CAP PO SCH (20:46)
[2024-12-31] MEDS: IBUPROFEN 600 MG TAB PO SCH (21:36)
[2025-01-01] MEDS ORDERED: diphenhydrAMINE 50 MG/ML VIAL IV PRN (02:38)
[2025-01-01] MEDS ORDERED: diphenhydrAMINE Capsule 25 MG CAP PO PRN (02:38)
[2025-01-01] MEDS ORDERED: ONDANSETRON INJ 2 MG/ML 2 ML VIAL IV PRN (02:38)
[2025-01-01] MEDS ORDERED: HYDROmorphone INJ 0.5 MG/0.5 ML SYR IV PRN (02:38)
[2025-01-01] MEDS ORDERED: PROMETHAZINE 12.5 MG/50.5 ML BAG IV PRN (02:38)
[2025-01-01] MEDS: IBUPROFEN 600 MG TAB PO STA (03:00)
[2025-01-01 06:19] LABS: Hematocrit (blood only) 24.7 % (37.0-47.0); Hemoglobin 8.3 g/dl (12.0-16.0); Immature Granulocytes # (auto) 0.10 K/uL (0.01-0.20); Immature Granulocytes % (auto) 0.8 %; Mean Corpuscular Hemoglobin 30.5 pg (25.0-34.0); Mean Corpuscular Volume 90.8 fL (80.0-100.0); Platelet Count 102 K/uL (130-400); RDW Standard Deviation 49.4 fL (36.4-46.3); Red Blood Count 2.72 M/uL (4.20-5.40); White Blood Count 12.28 K/ul (4.8-10.8)
--- NOTE | 2025-01-01 06:35 | Obstetrical Progress Note ---
Date of Service January 01, 2025 Assessment & Plan (1) care following delivery: Plan 34 yo post- day 1 s/p . Feels well today. Vital signs stable Continue post- care Encourage ambulation and Pain controlled with ibuprofen Hgb stable, monitor for sx, repeat H/H if symptomatic Admission and Anticipated Discharge Date Admission Date: December 29, 2024 Supervising Physician Co-Signing Physician Notes Resident Physician Supervision Note: I interviewed and examined the patient. Discussed with Dr. March and agree with findings and plan as documented in the note. Any exceptions or clarifications are listed here: [None] Documented By: Pedro Vasquez MD, FACOG Subjective 34 yo post- day 1 s/p . Ambulation: ambulating normally Voiding: no voiding problems Passing Gas:: Yes Passing Stool:: no Diet Tolerance:: regular diet Lochia:: Small Feeding Type:: breast and bottle feeding Current Pain Level: 2/10 Resting comfortably this AM in NAD. Denies DILLARD, CP, SOB, N/V/D, LE pain/swelling. Review of Systems Review of Systems: All systems reviewed & are unremarkable except as noted in HPI & below Physical Exam Physical Exam: General: patient resting comfortably, NAD, non-toxic in appearance, AA&O x 4, answers questions appropriately. Skin: warm, dry, intact HEENT: NC/AT, anicteric sclera, conjunctiva without injection, moist mucus membranes. Heart: +S1/S2, regular, no m/r/g Lungs: equal air entry bilaterally, no rales/rhonchi/wheezes Abd: +BS, soft, NT/ND, uterine fundus firm 1 FB below umbilicus, caesarean incision covered in JL dressing Ext: warm, no clubbing/cyanosis or edema, Julian's neg. Neuro: nonfocal, patient AA&O x 4, speech intact, no facial droop, moving all extremities on command. Results & Data Vital Signs (Past 12 Hours) Vital Signs Temp Pulse Resp BP Pulse Ox O2 Del Method 01/01/25 03:18 37.2 C 78 19 114/78 97 Room Air 01/01/25 02:00 18 99 01/01/25 01:00 18 96 01/01/25 00:00 19 98 12/31/24 23:22 36.5 C 92 H 18 119/74 94 Room Air 12/31/24 23:00 17 95 12/31/24 22:00 18 99 12/31/24 21:00 17 97 12/31/24 20:00 19 98 12/31/24 19:15 17 97 12/31/24 19:15 36.7 C 93 H 17 126/80 97 Room Air Laboratory Results OB Labs: Blood Type B Positive 06/16/24 Antibody Screen NEGATIVE 06/16/24 Hgb 11.3 g/dl (12.0-16.0) L 09/26/24 Hct 33.8 % (37.0-47.0) L 09/26/24 MCV 86.6 fL (80.0-100.0) 06/16/24 Plt Count 181 K/uL (130-400) 06/16/24 Rubella IgG Antibody Immune (Immune) 06/16/24 Treponema pallidum Ab Negative (Negative) 09/26/24 Hep Bs Antigen Negative (Negative) 06/16/24 Hepatitis C Antibody Negative (Negative) 06/16/24 HIV 1&2 Ab/P24 Ag 4thGn Negative (Negative) 06/16/24 Glucose 1 Hr 50 gm 160 mg/dl (70-130) H 10/24/24 Resident Activity Tracking Resident Involvement: Resident Care Provided Care Provided: OB Delivery
[2025-01-01] MEDS: FERROUS SULFATE 325 MG TAB PO SCH (08:32)
[2025-01-01] MEDS: PRENATAL VITAMIN 1 TAB PO SCH (08:32)
[2025-01-01] MEDS: IBUPROFEN 600 MG TAB PO SCH (08:33)
[2025-01-01] MEDS ORDERED: KETOROLAC 30 MG/ML VIAL IV PRN (08:44)
[2025-01-02 06:14] LABS: Hematocrit (blood only) 24.2 % (37.0-47.0); Hemoglobin 8.1 g/dl (12.0-16.0)
--- NOTE | 2025-01-02 06:56 | Obstetrical Progress Note ---
Date of Service January 02, 2025 Assessment & Plan (1) care following delivery: Plan 34 yo post- day 2 s/p . Feels well today. Vital signs stable Continue post- care Encourage ambulation and Pain controlled with ibuprofen Hgb stable, monitor for sx Discharge today, follow with Dr. Vasquez in 6 weeks Admission and Anticipated Discharge Date Admission Date: December 29, 2024 Supervising Physician Co-Signing Physician Notes Patient seen with resident and agree with the above findings and plan. Patient doing well and requesting discharge today. Subjective 34 yo post- day 2 s/p . Ambulation: ambulating normally Voiding: no voiding problems Passing Gas:: Yes Passing Stool:: Yes Diet Tolerance:: regular diet Lochia:: Small Feeding Type:: breast and bottle feeding Current Pain Level: 2/10 Resting comfortably this AM in NAD. Denies DILLARD, CP, SOB, N/V/D, LE pain/swelling. Review of Systems Review of Systems: All systems reviewed & are unremarkable except as noted in HPI & below Physical Exam Physical Exam: General: patient resting comfortably, NAD, non-toxic in appearance, AA&O x 4, answers questions appropriately. Skin: warm, dry, intact HEENT: NC/AT, anicteric sclera, conjunctiva without injection, moist mucus membranes. Heart: +S1/S2, regular, no m/r/g Lungs: equal air entry bilaterally, no rales/rhonchi/wheezes Abd: +BS, soft, NT/ND, uterine fundus firm 1 FB below umbilicus, caesarean incision covered in JL dressing Ext: warm, no clubbing/cyanosis or edema, Julian's neg. Neuro: nonfocal, patient AA&O x 4, speech intact, no facial droop, moving all extremities on command. Results & Data Vital Signs (Past 12 Hours) Vital Signs Temp Pulse Resp BP Pulse Ox O2 Del Method 01/02/25 03:20 36.5 C 83 18 126/80 98 Room Air 01/01/25 19:30 36.5 C 84 16 134/82 99 Room Air Laboratory Results OB Labs: Blood Type B Positive 06/16/24 Antibody Screen NEGATIVE 06/16/24 Hgb 11.3 g/dl (12.0-16.0) L 09/26/24 Hct 33.8 % (37.0-47.0) L 09/26/24 MCV 86.6 fL (80.0-100.0) 06/16/24 Plt Count 181 K/uL (130-400) 06/16/24 Rubella IgG Antibody Immune (Immune) 06/16/24 Treponema pallidum Ab Negative (Negative) 09/26/24 Hep Bs Antigen Negative (Negative) 06/16/24 Hepatitis C Antibody Negative (Negative) 06/16/24 HIV 1&2 Ab/P24 Ag 4thGn Negative (Negative) 06/16/24 Glucose 1 Hr 50 gm 160 mg/dl (70-130) H 10/24/24 OB Optional Labs: No Data to Display Labs Reviewed: Initial OB Labs Blood Type & RH Antibody Screen HCT/HGB Platelets Hep C IgG 13yrs+ Old Pap Test Chlamydia 05/16/24 not detected Gonorrhea 05/16/24 not detected Rubella RPR Urine Culture/Screen HBsAg HIV MCV Ultrasound Resident Activity Tracking Resident Involvement: Resident Care Provided Care Provided: OB Delivery
[2025-01-02] MEDS: IBUPROFEN 600 MG TAB PO PRN (08:13)
[2025-01-02 09:09] VITALS: BP 132/82; RESP 16; TEMP 98.2; O2SAT 99
[2025-01-02 11:42] VITALS: PULSE 86
[2025-01-02] MEDS ORDERED: ACETAMINOPHEN 325 MG TAB PO PRN (14:44)
== END 2025-01-02 11:30 | disposition home or self-care (01) | DRG 788 ==
LOC: 4S1 18:02 → 4E2 12-31 11:30